=== PATIENT | male | born 1985 | race Caucasian/White ===

== ENCOUNTER → 2020-05-12 | Outpatient (CLI) | payer OTHER ==
[~2020-05-12] MED LIST: ISOVUE-370 76% 100ML VIAL As Ordered ONE
== END ==
LOC: M RAD 08:40
PROVIDERS: ATTEND Physician Assistant
DX: M54.5 Low back pain (principal)
CPT/HCPCS: 72133; Q9967

== ENCOUNTER → 2021-01-30 | Outpatient (CLI) | payer OTHER ==
--- NOTE | 2021-01-30 09:54 | REP ---
INDICATION: FX OF NASAL BONE. COMPARISON: NONE. TECHNIQUE: Helical scanning is acquired and 2 mm axial images re-formatted. Coronal MPR images are generated and reviewed. FINDINGS: Preliminary digital group practice pediatrician radiographs are unremarkable. There is minimal old posttraumatic deformity of the nasal bone. The inferior maxillary spine shows a mild posttraumatic deformity as well which appears to be old. Zygomatic arches are intact. Orbital margins appear intact. There is subtle sclerosis and flattening of the mandibular condyle on the right compared to the left. The anterior inferior nasal septum demonstrates what appears to be a perforation. This measures 1.6 Cm anterior to posterior by 1.1 cm cranial to caudal. posterior to the perforation, there is slight leftward deviation of the septum with a small beak. The patient is status post bilateral uncinectomy/nasoantral window. There is bilateral moderate mucosal thickening in the inferior aspect of each maxillary sinus. A small mucous retention cyst is seen in the superolateral wall of the left maxillary sinus. The maxillary sinuses are predominantly clear. Ethmoid bullectomy is is been performed as well. The ethmoid sinuses are essentially clear. There is mild mucosal thickening in the sphenoid sinuses. Frontal sinuses are clear. Mastoid aeration is normal and symmetric. The middle ear cavities appear aerated. 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 Status post bilateral uncinectomy and ethmoid bullectomy. 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 Mild mucosal changes as noted above. <Electronically signed by Santiago Cisneros > 01/30/21 [id number]
== END ==
LOC: M RAD 08:20
PROVIDERS: ATTEND Specialist
DX: S02.2XXD Fracture of nasal bones, subsequent encounter for fracture with routine healing (principal); X58.XXXD Exposure to other specified factors, subsequent encounter; Y92.9 Unspecified place or not applicable

== ENCOUNTER → 2021-03-26 | Outpatient (REF) ==
--- NOTE | 2021-03-26 11:16 | REP ---
INDICATION: [facility] [employer]- FRACTURE COMPARISON: None. TECHNIQUE: AP and frog-lateral views of the right femur. FINDINGS: Osseous structures and joint spaces are intact and relatively normal/age-appropriate. Small metallic flecks of foreign body in the soft tissue along the medial thigh and medial knee are identified. IMPRESSION: No evidence for acute fracture or dislocation. Small foreign body material in the soft tissues.. <Electronically signed by Henrique Claire > 03/26/21 [id number]
== END ==
LOC: M PLAIMG 09:43
PROVIDERS: ATTEND Internal Medicine
DX: S72.91XA Unspecified fracture of right femur, initial encounter for closed fracture (principal); X58.XXXA Exposure to other specified factors, initial encounter; Y92.9 Unspecified place or not applicable

== ENCOUNTER → 2021-05-22 | Outpatient (REF) ==
--- NOTE | 2021-05-22 12:54 | REP ---
INDICATION: PAIN. COMPARISON: None. TECHNIQUE: Three views FINDINGS: Two lateral views and an upright Hancock view of the nasal bones show no evidence of an acute nasal bone fracture or a nasomaxillary spine fracture. Limited evaluation of the paranasal sinuses show no air fluid levels. IMPRESSION: No acute abnormality <Electronically signed by Kwasi Ashby > 05/22/21 [id number]
--- NOTE | 2021-05-22 12:54 | REP ---
INDICATION: PAIN COMPARISON: None. TECHNIQUE: AP, lateral, bilateral oblique views right and left foot. FINDINGS: Left foot demonstrates small amount of metallic foreign body overlying the anterior margin of the calcaneus and adjacent soft tissue. Bilateral osseous structures, joint spaces, and surrounding soft tissues are otherwise essentially symmetric and age-appropriate. No overt osteoarthritic or inflammatory arthritic changes are appreciated. No acute or healed fracture identified. No further foreign body or subcutaneous emphysema. IMPRESSION: With the exception of the above-mentioned foreign body material in the left mid/hindfoot, the examination is essentially symmetric and age-appropriate.. <Electronically signed by Henrique Claire > 05/22/21 [id number]
--- NOTE | 2021-05-22 12:55 | REP ---
INDICATION: PAIN. COMPARISON: None TECHNIQUE: Three views FINDINGS: Multiple views of the paranasal sinuses show no abnormal soft tissue densities within any of the visualized paranasal sinuses. There are no air fluid levels. There is no lysis or sclerosis of the bony architecture surrounding the paranasal sinuses. There is no significant nasal septal deviation. The adenoidal soft tissues are within normal limits. There is no evidence of airway compromise. IMPRESSION: Unremarkable paranasal sinuses. <Electronically signed by Kwasi Ashby > 05/22/21 [id number]
--- NOTE | 2021-05-22 12:56 | REP ---
INDICATION: PAIN. COMPARISON: None. TECHNIQUE: Three views of the left shoulder were performed. FINDINGS: The acromioclavicular and glenohumeral relationships are within normal limits. There is no acute fracture or destructive osseous lesion. IMPRESSION: Within normal limits <Electronically signed by Kwasi Ashby > 05/22/21 [id number]
--- NOTE | 2021-05-22 12:56 | REP ---
INDICATION: PAIN. COMPARISON: None. TECHNIQUE: PA and lateral FINDINGS: The superior mediastinal structures are midline. The cardiac silhouette is unremarkable in size, shape, and position. The diaphragmatic surfaces of the lungs are regular, and the costophrenic angles are clear. The pulmonary morgan are clear. The imaged osseous structures are intact. IMPRESSION: There is no acute cardiopulmonary disease. <Electronically signed by Kwasi Ashby > 05/22/21 [id number]
--- NOTE | 2021-05-22 12:56 | REP ---
INDICATION: PAIN COMPARISON: None. TECHNIQUE: AP and frog-lateral views of the left femur. FINDINGS: The osseous structures and joint spaces are intact and normal. There is no evidence for acute fracture or dislocation. Surrounding soft tissues are unremarkable. No subcutaneous emphysema or radiodense foreign body. IMPRESSION: No significant degenerative or posttraumatic changes appreciated. No acute fracture or dislocation. <Electronically signed by Henrique Claire > 05/22/21 [id number]
--- NOTE | 2021-05-22 12:57 | REP ---
INDICATION: PAIN COMPARISON: None. TECHNIQUE: AP and lateral views. FINDINGS: Visualized proximal femur is relatively normal. Small flecks of metallic foreign body identified along the medial aspect adjacent to the medial femoral condyle and within the medial thigh. Healed fractures of the proximal tibia and fibula noted. The knee joint itself appears intact and normal. IMPRESSION: Relatively normal appearance to the knee joint. Sequelae of old injuries noted. <Electronically signed by Henrique Calire > 05/22/21 [id number]
--- NOTE | 2021-05-22 12:58 | REP ---
INDICATION: PAIN. COMPARISON: None. TECHNIQUE: AP and lateral FINDINGS: There is no acute fracture or destructive osseous lesion. A partially imaged radiodensity seen in the elbow region. If clinically relevant obtained four view elbow series. IMPRESSION: No humeral abnormality. <Electronically signed by Kwasi Ashby > 05/22/21 [id number]
--- NOTE | 2021-05-22 13:02 | REP ---
INDICATION: PAIN. COMPARISON: None. TECHNIQUE: Four views FINDINGS: The joint spaces are symmetric and relatively well maintained. There is an expansile lesion in the distal diaphysis of the 4th metacarpal with mild cortical thinning and endosteal scalloping. A matrix of mixed density is seen within this expansile lesion. There is no evidence of a concomitant soft tissue abnormality. There is no evidence of a periosteal reaction. There is a radiodensity in the soft tissues of the proximal phalanx of the 3rd digit medially measuring 4 mm. 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 Follow-up with pre and post gadolinium enhanced MRI is recommended. If the aforementioned soft tissue density is metallic and ferromagnetic then it would have to be removed prior to MRI. <Electronically signed by Kwasi Ashby > 05/22/21 [id number]
== END ==
LOC: M PLAIMG 11:17
PROVIDERS: ATTEND Internal Medicine
DX: M25.512 Pain in left shoulder (principal); X58.XXXA Exposure to other specified factors, initial encounter; Y92.89 Other specified places as the place of occurrence of the external cause; Y93.89 Activity, other specified; Y99.8 Other external cause status